=== PATIENT | female | born 1960 | race Caucasian/White ===

== ENCOUNTER 2016-08-10 09:28 | Emergency (ER) | payer BC ==
[~2016-08-10] VITALS: Ht 162.6 cm; Wt 103.6 kg
[~2016-08-10 09:28] MED LIST: BEN25 PO; CEPH-443 PO; HYDR-3498 PO; NAPR-260 PO; PRED20TA PO
[2016-08-10 09:35] VITALS: Ht 162.6 cm; Wt 103.6 kg
[2016-08-10] MEDS ORDERED: KETOROLAC 60 MG INJ IM STA (09:51)
[2016-08-10] MEDS ORDERED: NAPR-260 PO (09:56)
[2016-08-10] MEDS ORDERED: PRED20TA PO (09:56)
[2016-08-10] MEDS ORDERED: DEXAMETHASONE 10 MG/ML 1 ML INJ IM ONE (10:00)
--- NOTE | 2016-08-10 10:18 | ERD ---
ER Documentation Chief Complaint Date/Time DATE: 08/10/16 TIME: 10:10 Chief Complaint has bilateral hand pain has arthritis HPI This patient is a 56-year-old female with a history of rheumatoid arthritis for the past 20 years presenting to the emergency department for swelling in her hands and severe pain which has been ongoing for many years but worsening over the past week. The patient takes no maintenance medications for her condition. The patient denies fevers, chills, fall, trauma, or other symptoms. ROS All systems reviewed and are negative except as per history of present illness. Medications Home Meds Active Scripts Naproxen* (Naprosyn*) 500 Mg Tablet, 500 MG PO BID Y for PAIN AND/OR INFLAMMATION, #30 TAB Prov:NIKHIL KUNZ PA-C 08/10/16 Prednisone* (Prednisone*) 20 Mg Tab, 40 MG PO DAILY for 5 Days, #10 TAB Prov:NIKHIL KUNZ PA-C 08/10/16 Prednisone* (Prednisone*) 20 Mg Tab, 40 MG PO DAILY for 4 Days, TAB Prov:JET THOMPSON DO 10/17/15 Hydrocodone Bit-Acetaminophen* ([place]*) 5-325 Mg Tab, 1 TAB PO Q6 Y for PAIN, # 15 TAB Prov:JET THOMPSON DO 10/17/15 Naproxen* (Naprosyn*) 500 Mg Tablet, 500 MG PO BID Y for PAIN AND/OR INFLAMMATION, #30 TAB Prov:JET THOMPSON DO 10/17/15 Diphenhydramine Hcl* (Benadryl*) 25 Mg Cap, 25 MG PO Q6, #14 CAP Prov:TERELL MAJANO PA-C 07/23/15 Cephalexin* (Keflex*) 500 Mg Capsule, 500 MG PO QID for 5 Days, CAP Prov:TERELL MAJANO PA-C 07/23/15 Allergies Allergies: Coded Allergies: No Known Allergy (Unverified , 08/10/16) PMhx/Soc History of Surgery: No Anesthesia Reaction: No Hx Neurological Disorder: No Hx Respiratory Disorders: No Hx Cardiac Disorders: No Hx Psychiatric Problems: No Hx Miscellaneous Medical Probl: Yes (arthritis ) Hx Alcohol Use: No Hx Substance Use: No Hx Tobacco Use: No Smoking Status: Never smoker FmHx Family History: diabetes Physical Exam Vitals Vital Signs Date Time Temp Pulse Resp B/P Pulse Ox O2 Delivery O2 Flow Rate FiO2 08/10/16 09:35 98.6 74 18 168/86 96 Physical Exam INITIAL VITAL SIGNS: Reviewed by me. GENERAL: Alert and interactive. No acute distress. HEAD: Head is normocephalic and atraumatic. EYES: EOMI. No scleral icterus. No conjunctival injection. ENT: Moist mucosa. NECK: Supple. Full range of motion. RESPIRATORY: Normal respiratory effort. Clear breath sounds bilaterally. No wheezing, rales, or rhonchi. CV: Regular rate and rhythm. Normal S1 S2. No S3 or S4. No murmurs. ABDOMEN: Soft, non-distended, non-tender. No guarding. No rebound. No masses. EXTREMITIES: There is swelling and tenderness to palpation of all joints of bilateral hands. There is no warmth, erythema, or lymphatic streaking noted. Bilateral lower extremities are normal in appearance. SKIN: Warm and dry. NEUROLOGIC: Alert and oriented x 4. Speech is normal. Moves all extremities equally. No motor or sensory deficits noted. Results 24 hrs Current Medications Medications (Trade) Dose Ordered Sig/Camelia Route PRN Reason Start Time Stop Time Status Last Admin Dose Admin Dexamethasone (Decadron) 10 mg ONCE ONCE IM 08/10/16 10:00 08/10/16 10:01 DC 08/10/16 10:00 Ketorolac Tromethamine (Toradol) 60 mg ONCE STAT IM 08/10/16 09:51 08/10/16 09:52 DC 08/10/16 10:00 Procedures/MDM 56-year-old female presents secondary to complaints of bilateral hand swelling and pain for the past week. On physical examination the patient's blood pressure slightly elevated which I believe is secondary to pain. The patient's blood pressure was rechecked prior to discharge. The patient will be given IM Toradol and IM Decadron in the department. On reevaluation the patient was feeling improved. The patient will be discharged home with prescriptions for prednisone and naproxen. I do not believe xrays are indicated or required at this time because there was no trauma. The primary diagnosis is arthralgia. I highly doubt septic arthritis, cellulitis, or other emergent conditions as the patient is afebrile. The patient is to follow-up with [facility] hand clinic and her primary care physician. The patient agrees with the discharge plan and diagnosis. All questions and concerns were addressed. The patient was explicitly instructed to return to the department immediately with any new or worsening symptoms and she demonstrates understanding of this information. Departure Diagnosis: Primary Impression: Arthralgia Joint pain location: hand Laterality: bilateral Qualified Code: M25.541 - Arthralgia of both hands Additional Impression: Joint pain Joint pain location: hand Laterality: bilateral Qualified Code: M25.541 - Arthralgia of both hands Condition: Fair Patient Instructions: Arthralgia, Rheumatoid Arthritis Referrals: [facility] () Usted se corey hecho un examen mdico de control que le indica que no est en jag condicin que requiera tratamiento urgente en el Departamento de Emergencia. Un estudio ms profundo y el tratamiento de dumont condicin pueden esperar sin ningn riesgo hasta que usted sea atendida/o en el consultorio de dumont mdico o jag cl myrna. Es responsabilidad suya arreglar jag joseph para el seguimiento del abena. MANEJO DE CONDICIONES NO URGENTES EN EL FUTURO 1) Si usted tiene un mdico de atencin primaria: Usted debera llamar a dumont mdico de atencin primaria antes de venir al departamento de emergencia. Despus de las horas de consultorio, dumont doctor o dumont asociado/a est disponible por telfono. El mdico o enfermero de ruiz en el servicio telefnico puede asesorarle por chip medio para atender el problema, o abena contrario se puede programar jag joseph. 2) Si usted no tiene un mdico de atencin primaria: Llame al mdico o clnica de referencia que aparece abajo brynn las horas de consultorio para hacer jag joseph para que le vean. CLINICAS: [facility] 257 [phone] [address] [facility] [place]05 [phone] [address] [facility] 719 [phone] [facility] [phone] [facility] 234 [phone] [address] [facility]. [phone] [facility] Additional Instructions: No mas mejor en 2-3 fitzgerald, regresar. Mas peor en 24 horas, regresear rapidamente. Ir a doctor primario in 5-7 fitzgerald. Usar instrucciones cuando marie medicamento. NIKHIL KUNZ PA-C Aug 10, 2016 10:18
== END 2016-08-10 10:17 | disposition home or self-care (01) ==
LOC: FTE 09:28
DX: M25.541 Pain in joints of right hand (principal); M25.542 Pain in joints of left hand
CPT/HCPCS: 96372; J1100; J1885; Z7502

== ENCOUNTER 2016-12-01 11:47 | Emergency (ER) | payer BC ==
[~2016-12-01] VITALS: Ht 160 cm; Wt 90.0 kg
[2016-12-01 11:50] VITALS: Ht 160 cm; Wt 90.0 kg
[2016-12-01] MEDS ORDERED: KETOROLAC 30 MG INJ IM STA (12:23)
--- NOTE | 2016-12-01 12:34 | ERD ---
ER Documentation Chief Complaint Date/Time DATE: 12/01/16 TIME: 12:30 Chief Complaint JOINTS PAIN, HAS ARTHERITIS HPI Patient is a 56-year-old female with a past medical history of rheumatoid arthritis x 20 years who presents to the ED with pain in multiple joints specifically her wrists and fingers. She states that she does not have a primary care doctor that she follows up with regarding her symptoms. She states that she usually gets a Toradol injection here which helps with her symptoms. She states that her current symptoms have been going on for years but worse in the last week. Denies fever or chills. Denies abdominal pain, nausea, vomiting or diarrhea. States that she also has pain in her elbows and knees and neck. Denies trauma or falls. She has not taken any medication for her symptoms. No other complaints. ROS All systems reviewed and are negative except as per history of present illness. Medications Home Meds Active Scripts Naproxen* (Naprosyn*) 500 Mg Tablet, 500 MG PO BID Y for PAIN AND/OR INFLAMMATION, #30 TAB Prov:NIKHIL KUNZ PA-C 08/10/16 Prednisone* (Prednisone*) 20 Mg Tab, 40 MG PO DAILY for 5 Days, #10 TAB Prov:NIKHIL KUNZ PA-C 08/10/16 Prednisone* (Prednisone*) 20 Mg Tab, 40 MG PO DAILY for 4 Days, TAB Prov:JET THOMPSON DO 10/17/15 Hydrocodone Bit-Acetaminophen* ([place]*) 5-325 Mg Tab, 1 TAB PO Q6 Y for PAIN, # 15 TAB Prov:JET THOMPSON DO 10/17/15 Naproxen* (Naprosyn*) 500 Mg Tablet, 500 MG PO BID Y for PAIN AND/OR INFLAMMATION, #30 TAB Prov:JET THOMPSON DO 10/17/15 Diphenhydramine Hcl* (Benadryl*) 25 Mg Cap, 25 MG PO Q6, #14 CAP Prov:TERELL MAJANO PA-C 07/23/15 Cephalexin* (Keflex*) 500 Mg Capsule, 500 MG PO QID for 5 Days, CAP Prov:TERELL MAJANO PA-C 07/23/15 Allergies Allergies: Coded Allergies: No Known Allergy (Unverified , 08/10/16) PMhx/Soc History of Surgery: No Anesthesia Reaction: No Hx Neurological Disorder: No Hx Respiratory Disorders: No Hx Cardiac Disorders: No Hx Psychiatric Problems: No Hx Miscellaneous Medical Probl: Yes (arthritis ) Hx Alcohol Use: No Hx Substance Use: No Hx Tobacco Use: No FmHx Family History: No coronary disease, No diabetes, No other Physical Exam Vitals Vital Signs Date Time Temp Pulse Resp B/P Pulse Ox O2 Delivery O2 Flow Rate FiO2 12/01/16 11:50 98.1 86 20 140/80 99 Physical Exam GENERAL: Well-developed, well-nourished female. Appears in no acute distress. HEAD: Normocephalic, atraumatic. EYES: Pupils are equally reactive bilaterally. EOMs grossly intact. No conjunctival erythema. ENT: Moist mucous membranes. No uvula deviation. No kissing tonsils. No exudates. NECK: Supple. No lymphadenopathy or thyromegaly. No meningismus. negative kernig. negative brudinski. LUNG: Clear to auscultation bilaterally. No rhonchi, wheezing, rales or coarse breath sounds. HEART: Regular rate and rhythm. No murmurs, rubs or gallops. Extremities: Equal pulses bilaterally. No peripheral clubbing, cyanosis or edema. No unilateral leg swelling. Ulnar deviation in bilateral hands. Tenderness to the DIP, PIP, metacarpal and wrist joint as well as elbow. No warmth or signs of infection. NEUROLOGIC: Alert and oriented. Moving all four extremities. 5/5 strength in all extremities. Normal speech. Steady gait. SKIN: Normal color. Warm and dry. No rashes or lesions. Capillary refill < 2 seconds Results 24 hrs Current Medications Medications (Trade) Dose Ordered Sig/Camelia Route PRN Reason Start Time Stop Time Status Last Admin Dose Admin Ketorolac Tromethamine (Toradol) 30 mg ONCE STAT IM 12/01/16 12:23 12/01/16 12:25 DC Procedures/MDM ER COURSE: I kept the patient and/or family informed of laboratory and diagnostic imaging results throughout the emergency room course. MEDICAL DECISION MAKING: This is a 56-year-old female with past medical history of rheumatoid arthritis who presents with joint pain 1 week. Vital signs were reviewed. Patient is afebrile. Patient is not hypoxic. Patient is not toxic or ill-appearing. Patient has tenderness on all her joints on examination. Toradol shot was given here in the ED and patient had negative test. Tolerated well with no adverse reaction. Low suspicion for dislocation, fracture, septic joint , compartment syndrome, osteomyelitis, cellulitis, avascular necrosis, neurological injury, vascular injury, tendon laceration. DISCHARGE: At this time, patient is stable for discharge and outpatient management with no new complaints during the ER course. Patient was sent home with Cristal and to follow-up with primary care provider regarding better management of her rheumatoid arthritis. Patient will be discharged home with instructions to recheck for new or worsening symptoms such as fever, nausea, weakness, LOC and to follow up with primary care in the next 1-2 days. Patient was advised to return to the ER for any new or worsening symptoms. Plan was discussed and patient and/or family understands and agrees. Home instructions were given. Departure Diagnosis: Primary Impression: Joint pain Joint pain location: hand Laterality: bilateral Qualified Code: M25.541 - Arthralgia of both hands Condition: Stable JOSE MARTIN PHAM PA-C Dec 01, 2016 12:34
[2016-12-01] MEDS ORDERED: NAPR-260 PO (12:36)
[2016-12-01 12:53] LABS: URINE BLOOD (Dip) POC Negative (NEGATIVE)
== END 2016-12-01 13:14 | disposition home or self-care (01) ==
LOC: FTE 11:47
DX: M25.541 Pain in joints of right hand (principal)
CPT/HCPCS: 81003; 96372; J1885; Z7502

== ENCOUNTER 2016-12-26 11:22 | Emergency (ER) | payer BC ==
[~2016-12-26] VITALS: Wt 107.0 kg
[2016-12-26] MEDS ORDERED: KETOROLAC 30 MG INJ IV STA (11:45)
[2016-12-26] MEDS ORDERED: hydrALAzine 20 MG INJ IV ONE (12:00)
[2016-12-26 12:07] LABS: ADD SCAN DIFF NO
[2016-12-26 12:11] LABS: BASOPHILS % 0.6 % (0.0-2.0); EOSINOPHILS # 0.4 10^3/ul (0.0-0.5); EOSINOPHILS % 5.7 % (0.0-7.0); HEMATOCRIT 37.6 % (37.0-47.0); HEMOGLOBIN 12.2 g/dl (12.0-16.0); LYMPHOCYTES # 1.8 10^3/ul (0.8-2.9); LYMPHOCYTES % 27.9 % (15.0-51.0); MEAN CORPUSCULAR HEMOGLOBIN 28.6 pg (29.0-33.0); MEAN CORPUSCULAR HGB CONC 32.4 g/dl (32.0-37.0); MEAN CORPUSCULAR VOLUME 88.3 fl (82.0-101.0); MEAN PLATELET VOLUME 9.7 fl (7.4-10.4); MONOCYTE # 0.4 10^3/ul (0.3-0.9); MONOCYTES % 5.7 % (0.0-11.0); NEUTROPHIL # 3.7 10^3/ul (1.6-7.5); NEUTROPHILS % 59.6 % (39.0-77.0); PLATELET COUNT 262 10^3/UL (140-415); RED BLOOD COUNT 4.26 10^6/ul (4.20-5.40); RED CELL DISTRIBUTION WIDTH 13.7 % (11.5-14.5); WHITE BLOOD COUNT 6.3 10^3/ul (4.8-10.8)
[2016-12-26 12:25] LABS: INR 0.94; PROTIME 12.6 Sec (12.2-14.2)
[2016-12-26 12:26] LABS: PARTIAL THROMBOPLASTIN TIME 33.9 Sec (25.0-35.0)
[2016-12-26 12:28] LABS: ANION GAP 19 (8-16); BLOOD UREA NITROGEN 22 mg/dl (7-20); CALCIUM 9.5 mg/dl (8.4-10.2); CARBON DIOXIDE 24 mmol/L (21-31); CHLORIDE 106 mmol/L (97-110); CREATININE 0.68 mg/dl (0.44-1.00); GLUCOSE 127 mg/dl (70-220); POTASSIUM 3.8 mmol/L (3.5-5.1); SODIUM 145 mmol/L (135-144)
[2016-12-26 12:50] LABS: TROPONIN-I < 0.012 ng/ml (0.00-0.12)
--- NOTE | 2016-12-26 13:09 | RADRPT ---
PROCEDURE: Chest Radiograph. CLINICAL INDICATION: Chest pain TECHNIQUE: Single frontal chest radiograph. COMPARISON: None available FINDINGS: The cardiomediastinal silhouette is within normal limits. No infiltrate or effusion is seen. Th e bones are intact. IMPRESSION: 1. Unremarkable chest radiograph. RPTAT: KK .Randy Diehl MD, MD Date Time Electronically viewed and signed by .Randy Diehl MD, on 12/26/2016 13:09 .B/
[2016-12-26] MEDS ORDERED: PRED20TA PO (13:21)
[2016-12-26] MEDS ORDERED: IBUP800T25 PO (13:21)
--- NOTE | 2016-12-26 13:21 | ERD ---
ER Documentation Chief Complaint Date/Time DATE: 12/26/16 TIME: 13:18 Chief Complaint LEFT HAND NUMBNESS NO RECENT TRAUMA. NO DEFORMTY, GOOD CAP REFILL HPI This is a 56-year-old female who presents to the emergency room for evaluation of bilateral hand pain and numbness. The patient does state she has a history of rheumatoid arthritis. She has not seen a medical care manager and is not taking any medication for her rheumatoid arthritis. She came to the emergency room today for evaluation of her symptoms. In triage patient was found to have a blood pressure of 228 systolic was brought to the main ER for further evaluation. She denies any chest pain, palpitations, shortness of breath, nausea or vomiting. ROS All systems reviewed and are negative except as per history of present illness. Medications Home Meds Discontinued Scripts Naproxen* (Naprosyn*) 500 Mg Tablet, 500 MG PO BID Y for PAIN AND/OR INFLAMMATION, #30 TAB Prov:JOSE MARTIN PHAM PA-C 12/01/16 Naproxen* (Naprosyn*) 500 Mg Tablet, 500 MG PO BID Y for PAIN AND/OR INFLAMMATION, #30 TAB Prov:NIKHIL KUNZ PA-C 08/10/16 Prednisone* (Prednisone*) 20 Mg Tab, 40 MG PO DAILY for 5 Days, #10 TAB Prov:NIKHIL KUNZ PA-C 08/10/16 Prednisone* (Prednisone*) 20 Mg Tab, 40 MG PO DAILY for 4 Days, TAB Prov:VALENTE THOMPSONRAM DO 10/17/15 Hydrocodone Bit-Acetaminophen* ([place]*) 5-325 Mg Tab, 1 TAB PO Q6 Y for PAIN, # 15 TAB Prov:JAYJET DO 10/17/15 Naproxen* (Naprosyn*) 500 Mg Tablet, 500 MG PO BID Y for PAIN AND/OR INFLAMMATION, #30 TAB Prov:JAY,JET DO 10/17/15 Diphenhydramine Hcl* (Benadryl*) 25 Mg Cap, 25 MG PO Q6, #14 CAP Prov:TERELL MAJANO PA-C 07/23/15 Cephalexin* (Keflex*) 500 Mg Capsule, 500 MG PO QID for 5 Days, CAP Prov:TERELL MAJANO PA-C 07/23/15 Allergies Allergies: Coded Allergies: No Known Allergy (Unverified , 12/26/16) PMhx/Soc History of Surgery: Yes (ABDOMINAL HERNIA) Anesthesia Reaction: No Hx Neurological Disorder: No Hx Respiratory Disorders: No Hx Cardiac Disorders: No Hx Psychiatric Problems: No Hx Miscellaneous Medical Probl: Yes (ARTHRITIS) Hx Alcohol Use: No Hx Substance Use: No Hx Tobacco Use: No Smoking Status: Never smoker Physical Exam Vitals Vital Signs Date Time Temp Pulse Resp B/P Pulse Ox O2 Delivery O2 Flow Rate FiO2 12/26/16 11:59 98.0 79 20 114/60 99 Room Air 12/26/16 11:48 80 20 154/76 98 12/26/16 11:40 Nasal Cannula 2 12/26/16 11:25 97.6 85 20 228/118 99 Physical Exam INITIAL VITAL SIGNS: Reviewed by me GENERAL: The patient is well developed and appropriate for usual state of health in no apparent distress HEENT: Pupils equal, round, and reactive to light. EOMI. There is no scleral icterus. NECK: C-spine is soft and supple, there is no meningismus. There is no cervical lymphadenopathy. LUNGS: Clear to auscultation bilaterally. There are no rales, wheezes or rhonchi. HEART: Regular rate and rhythm, no murmurs, clicks, rubs or gallops. ABDOMEN: Soft, non-tender, non-distended. There are bowel sounds in all four quadrants. No rebound or guarding. EXTREMITIES: There is no peripheral cyanosis or edema. No focal swelling or erythema. NEUROLOGICAL: The patient moves all four extremities with 5/5 strength. Cranial nerves II - XII are intact. Normal gait. Alert and oriented SKIN: There is no apparent rash or petechiae. HEME/LYMPHATIC: There is no evidence of excessive bruising or lymphedema. PSYCHIATRIC: The patient does not appear anxious or depressed. Result Diagram: 12/26/16 1150 12/26/16 1150 Results 24 hrs Laboratory Tests Test 12/26/16 11:50 White Blood Count 6.310^3/ul Red Blood Count 4.2610^6/ul Hemoglobin 12.2g/dl Hematocrit 37.6% Mean Corpuscular Volume 88.3fl Mean Corpuscular Hemoglobin 28.6pg Mean Corpuscular Hemoglobin Concent 32.4g/dl Red Cell Distribution Width 13.7% Platelet Count 03533^3/UL Mean Platelet Volume 9.7fl Neutrophils % 59.6% Lymphocytes % 27.9% Monocytes % 5.7% Eosinophils % 5.7% Basophils % 0.6% Nucleated Red Blood Cells % 0.0/100WBC Neutrophils # 3.710^3/ul Lymphocytes # 1.810^3/ul Monocytes # 0.410^3/ul Eosinophils # 0.410^3/ul Basophils # 0.010^3/ul Nucleated Red Blood Cells # 0.010^3/ul Prothrombin Time 12.6Sec Prothrombin Time Ratio 1.0 INR International Normalized Ratio 0.94 Activated Partial Thromboplast Time 33.9Sec Sodium Level 145mmol/L Potassium Level 3.8mmol/L Chloride Level 106mmol/L Carbon Dioxide Level 24mmol/L Anion Gap 19 Blood Urea Nitrogen 22mg/dl Creatinine 0.68mg/dl Glucose Level 127mg/dl Calcium Level 9.5mg/dl Troponin I < 0.012ng/ml Current Medications Medications (Trade) Dose Ordered Sig/Camelia Route PRN Reason Start Time Stop Time Status Last Admin Dose Admin Hydralazine HCl (Apresoline) 10 mg ONCE ONCE IV 12/26/16 12:00 12/26/16 12:01 DC Ketorolac Tromethamine (Toradol) 30 mg ONCE STAT IV 12/26/16 11:45 12/26/16 11:48 DC 12/26/16 11:58 Methylprednisolone Sodium Succinate (Solu-Medrol) 125 mg ONCE ONCE IV 12/26/16 13:30 12/26/16 13:31 Procedures/MDM EKG: Rate/Rhythm: [Normal Sinus Rhythm] QRS, ST, T-waves: [No changes consistent w/ acute ischemia] Impression: [No evidence of ischemia or arrhythmia] Chest X-ray 1V Interpreted by me: Soft Tissue: No acute abnormalities Bones: No acute abnormalities Mediastinum/Cardiac Silhouette/Lungs: [No acute abnormalities] This 56-year-old female presents to the ER for evaluation of pain in her hands, intermittent numbness and tingling in her hands. When I evaluated this patient she was not as hypertensive as she was in triage. Her systolic blood pressure was 180. The patient was given 10 mg of hydralazine. Her blood pressure is now 114/64. Lab work was obtained including a troponin which is negative. Chest x-ray is clear, and EKG is nonischemic. The patient likely suffering from a flareup of her rheumatoid arthritis. The patient was given Toradol and Solu-Medrol in the emergency room and will be discharged home at this time with a prescription for Motrin, and prednisone with a referral for outpatient rheumatology Departure Diagnosis: Primary Impression: Rheumatoid arthritis flare Additional Impression: Arthralgia Condition: Stable SIRI GARDNER DO Dec 26, 2016 13:20
[2016-12-26 13:30] VITALS: BP 140/71; PULSE 71; RESP 17; TEMP 98
[2016-12-26] MEDS ORDERED: METHYLPREDNISOLONE 125 MG INJ IV ONE (13:30)
== END 2016-12-26 13:47 | disposition home or self-care (01) ==
LOC: E/R 11:22
DX: M06.9 Rheumatoid arthritis, unspecified (principal); M79.641 Pain in right hand; M79.642 Pain in left hand; R07.9 Chest pain, unspecified
CPT/HCPCS: 71010; 80048; 84484; 85025; 85610; 85730; 93005; J1885; J2930; Z7610; 36415; 96374; 96375; J0360

== ENCOUNTER 2017-01-16 12:23 | Emergency (ER) | payer BC ==
[~2017-01-16] VITALS: Ht 165.1 cm; Wt 107.5 kg
[~2017-01-16 12:23] MED LIST changes: -BEN25 PO; -CEPH-443 PO; -HYDR-3498 PO; +IBUP800T25 PO; -NAPR-260 PO
[2017-01-16 12:33] VITALS: Ht 165.1 cm; Wt 107.5 kg
[2017-01-16] MEDS ORDERED: ACETAMINOPHEN 325 MG TAB PO ONE (13:30)
--- NOTE | 2017-01-16 14:30 | RADRPT ---
PROCEDURE: XR Bilateral Hands CLINICAL INDICATION: Bilateral hand pain, status post fall 1 week ago, history of RA TECHNIQUE: PA, oblique, and lateral radiographs of each hand were submitted. COMPARISON: None FINDINGS: Osseous structures: appear well mineralized and intact with no fracture or destructive process iden tified. Joint spaces: There is mild narrowing of the radiocarpal joint spaces greater on the left than the r ight. The remaining joint spaces are adequately maintained with no significant spurring or erosion. Soft tissues: appear unremarkable. IMPRESSION: 1. Mild narrowing of the radiocarpal joint spaces, greater on the left and the right. 2. Otherwise, unremarkable bilateral hand series. Physician Estelle Date Time Electronically viewed and signed by Physician Estelle on 01/16/2017 14:30 /
[2017-01-16] MEDS ORDERED: IBUP-1542 PO (15:01)
[2017-01-16] MEDS ORDERED: PRED20TA PO (15:01)
--- NOTE | 2017-01-16 19:48 | ERD ---
ER Documentation Chief Complaint Date/Time DATE: 01/16/17 TIME: 19:38 Chief Complaint pt had mechanical fall 9 days ago, hurt both hands, swelling pain 10 HPI 56-year-old female complaining of bilateral hand pain. Patient stated that she had a ground-level fall 5 days ago, she braced the fall with both her arms outstretched and landed on her palms. She had pain in her thenar prominence and hypo-thenar area of the bilateral hands. Patient also reports swelling of her hands in the bilateral dorsal MCP region. She cannot flex or extend her fingers due to pain. 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 She is not taking any medications for her RA. ROS All systems reviewed and are negative except as per history of present illness. Medications Home Meds Active Scripts Ibuprofen* (Motrin*) 600 Mg Tab, 600 MG PO Q6H Y for PAIN AND OR ELEVATED TEMP, #30 TAB Prov:MARU NAVARRO NP 01/16/17 Prednisone* (Prednisone*) 20 Mg Tab, 60 MG PO DAILY for 3 Days, TAB Prov:MARU NAVARRO. KAYLYNN 01/16/17 Ibuprofen* (Motrin*) 800 Mg Tab, 800 MG PO Q6H Y for PAIN AND OR ELEVATED TEMP, #30 TAB Prov:SIRI GARDNER DO 12/26/16 Prednisone* (Prednisone*) 20 Mg Tab, 40 MG PO DAILY for 5 Days, TAB Prov:SIRI GARDNER DO 12/26/16 Allergies Allergies: Coded Allergies: No Known Allergy (Unverified , 12/26/16) PMhx/Soc History of Surgery: Yes (ABDOMINAL HERNIA) Anesthesia Reaction: No Hx Neurological Disorder: No Hx Respiratory Disorders: No Hx Cardiac Disorders: No Hx Psychiatric Problems: No Hx Miscellaneous Medical Probl: Yes (ARTHRITIS) Hx Alcohol Use: No Hx Substance Use: No Hx Tobacco Use: No Smoking Status: Never smoker Physical Exam Vitals Vital Signs Date Time Temp Pulse Resp B/P Pulse Ox O2 Delivery O2 Flow Rate FiO2 01/16/17 12:33 98.1 85 17 178/98 100 Physical Exam General: Well-developed, well-nourished, conscious and coherent, in no distress Skin: Warm and dry without rash, good texture and turgor Head: Normocephalic without evidence of trauma Eyes: Sclera and conjunctivae normal; pupils equal, round, and reactive to light; extraocular movements are intact Chest: Normal AP diameter. Good expansion without retractions. Nontender. Lungs are clear to auscultate bilaterally with good tidal volume Heart: Regular rate and rhythm. No murmur, rub, or gallops heard Extremities: Slight erythema noted in the bilateral hyperthenar region, nontender. Tenderness and edema over the dorsal MCP region bilaterally. Patient unable to perform active range of motion of her fingers. Neurovascularly intact. Neuro: Alert and oriented 4, GCS 15. Cranial nerves grossly intact. Motor and sensory exams nonfocal. Moves all extremities. Speech clear. Gait normal Results 24 hrs Current Medications Medications (Trade) Dose Ordered Sig/Camelia Route PRN Reason Start Time Stop Time Status Last Admin Dose Admin Acetaminophen (Tylenol Tab) 650 mg ONCE ONCE PO 01/16/17 13:30 01/16/17 13:31 DC 01/16/17 13:24 PROCEDURE: XR Bilateral Hands CLINICAL INDICATION: Bilateral hand pain, status post fall 1 week ago, history of RA TECHNIQUE: PA, oblique, and lateral radiographs of each hand were submitted. COMPARISON: None FINDINGS: Osseous structures: appear well mineralized and intact with no fracture or destructive process identified. Joint spaces: There is mild narrowing of the radiocarpal joint spaces greater on the left than the right. The remaining joint spaces are adequately maintained with no significant spurring or erosion. Soft tissues: appear unremarkable. IMPRESSION: 1. Mild narrowing of the radiocarpal joint spaces, greater on the left and the right. 2. Otherwise, unremarkable bilateral hand series. Physician Estelle Date Time Electronically viewed and signed by Physician Estelle on 01/16/2017 14:30 RH/ CC: MARU NAVARRO ONLINE EDUCATION MANAGER Procedures/MDM 56-year-old female with history of rheumatoid arthritis present ED complaining of bilateral hand pain and swelling 5 days. X-ray of bilateral hands showed mild narrowing of the radiocarpal joint spaces, greater on the left and the right. No fractures or dislocations are seen. I suspect her hand pain and swelling is due to her rheumatoid arthritis, which is not currently being treated. Patient is given prescription of prednisone and ibuprofen. Patient also given referral to community clinics for follow-up. Patient appears well, stable for discharge and outpatient management. Medical decision making shared with patient and family. Education provided to patient and family. Patient and family expressed understanding of the plan. Medications on discharge: Ibuprofen, prednisone. Follow-up: Primary care provider in 2-3 days or return to ED if worse. Disclaimer: Inadvertent spelling and grammatical errors are likely due to EHR/ dictation software use and do not reflect on the overall quality of patient care. Also, please note that the electronic time recorded on this note does not necessarily reflect the actual time of the patient encounter. Departure Diagnosis: Primary Impression: Pain of hand Condition: Stable Patient Instructions: Rheumatoid Arthritis Referrals: [facility] Usted se corey hecho un examen mdico de control que le indica que no est en jag condicin que requiera tratamiento urgente en el Departamento de Emergencia. Un estudio ms profundo y el tratamiento de dumont condicin pueden esperar sin ningn riesgo hasta que usted sea atendida/o en el consultorio de dumont mdico o jag cl myrna. Es responsabilidad suya arreglar jag alessandra para el seguimiento del abena. MANEJO DE CONDICIONES NO URGENTES EN EL FUTURO 1) Si usted tiene un mdico de atencin primaria: Usted debera llamar a dumont mdico de atencin primaria antes de venir al departamento de emergencia. Despus de las horas de consultorio, dumont doctor o dumont asociado/a est disponible por telfono. El mdico o enfermero de ruiz en el servicio telefnico puede asesorarle por chip medio para atender el problema, o abena contrario se puede programar jag alessandra. 2) Si usted no tiene un mdico de atencin primaria: Llame al mdico o clnica de referencia que aparece abajo brynn las horas de consultorio para hacer jag alessandra para que le vean. CLINICAS: [place] [id number] [phone] [facility] [phone] [place] [address] [phone] [place] [address] [phone] [place] [address] [phone] [place] [phone] Additional Instructions: Llame al doctor MAANA y laxmi jag ALESSANDRA PARA DENTRO DE 2-3 SHETTY.Dgale a la secretaria que nosotros le instruimos hacer esta alessandra.Avise o llame si dumont condicin se empeora antes de la alessandra. Regresa aqui si peor o no mejor. MARU NAVARRO NP Jan 16, 2017 19:48
== END 2017-01-16 15:11 | disposition home or self-care (01) ==
LOC: FTE 12:23
DX: M79.641 Pain in right hand (principal); M79.642 Pain in left hand
CPT/HCPCS: 73130; Z7502; Z7610